=== PATIENT | female | born 1950 | race Asian ===

== ENCOUNTER 2016-08-03 09:29 | Outpatient (CLI) | payer OTHER ==
[~2016-08-03] VITALS: Ht 167.6 cm; Wt 93.0 kg
[~2016-08-03 09:29] MED LIST: AMLO5TAB PO; BUDE1AER5 INH; CARV25TA PO; CLARITIN10 MG PO; DIAZ5TAB20 PO; FLUTICASONE50 MCG INH; LEXAPRO10 MG PO; MECLIZINE25 MG PO; MOBIC15 MG PO; MONTELUKAST SOD10 MG PO; OMEPRAZOLE20 M2 PO; POTA20TA4 PO; RANI150T78 PO; SIMV20TA2 PO
== END 2016-08-03 19:47 | disposition home or self-care (01) ==
LOC: NM 09:29 → MAMMO 13:00 → NM 19:47
DX: R92.8 Other abnormal and inconclusive findings on diagnostic imaging of breast (principal); R94.31 Abnormal electrocardiogram [ECG] [EKG]; R06.09 Other forms of dyspnea
CPT/HCPCS: 77056; A9500; G0206; J2785

== ENCOUNTER 2017-03-04 12:38 | Outpatient (CLI) | payer OTHER ==
[2017-03-04 16:20] LABS: PLATELET COUNT 271 K/uL (152-353)
[2017-03-04 16:42] LABS: POTASSIUM 4.1 mmol/L (3.6-5.2); SODIUM 138 mmol/L (136-145)
== END 2017-03-04 13:40 | disposition home or self-care (01) ==
LOC: LAB 12:38 → RAD 12:38 → LAB 13:40
PROVIDERS: Nurse Practitioner Family
DX: M62.830 Muscle spasm of back (principal); I10 Essential (primary) hypertension; E78.4 Other hyperlipidemia; R53.83 Other fatigue; R53.81 Other malaise; Z79.899 Other long term (current) drug therapy; Z51.81 Encounter for therapeutic drug level monitoring; E55.9 Vitamin D deficiency, unspecified
CPT/HCPCS: 80053; 80061; 82306; 82607; 83036; 84436; 84443; 85027

== ENCOUNTER 2017-11-08 13:40 | Outpatient (CLI) | payer OTHER ==
[2017-11-08 14:34] LABS: PLATELET COUNT 304 K/uL (152-353)
[2017-11-08 14:53] LABS: POTASSIUM 3.5 mmol/L (3.6-5.2)
== END 2017-11-08 21:58 | disposition home or self-care (01) ==
LOC: LAB 13:40
PROVIDERS: Nurse Practitioner Family
DX: E53.8 Deficiency of other specified B group vitamins (principal); E55.9 Vitamin D deficiency, unspecified; F41.8 Other specified anxiety disorders; Z79.899 Other long term (current) drug therapy; Z51.81 Encounter for therapeutic drug level monitoring; E78.4 Other hyperlipidemia; I10 Essential (primary) hypertension; R53.83 Other fatigue
CPT/HCPCS: 80053; 80061; 82306; 82607; 83036; 84436; 84443; 85027

== ENCOUNTER 2018-12-01 08:15 | Outpatient (CLI) | payer OTHER ==
[2018-12-01 08:45] LABS: PLATELET COUNT 253 K/uL (152-353)
[2018-12-01 10:01] LABS: POTASSIUM 3.6 mmol/L (3.6-5.2)
== END 2018-12-01 19:57 | disposition home or self-care (01) ==
LOC: LABW 08:15
PROVIDERS: Nurse Practitioner Family
DX: I10 Essential (primary) hypertension (principal); E78.5 Hyperlipidemia, unspecified; R53.83 Other fatigue; Z79.899 Other long term (current) drug therapy
CPT/HCPCS: 36415; 80053; 80061; 83036; 84439; 84443; 85027

== ENCOUNTER 2019-07-31 07:50 | Outpatient (CLI) | payer OTHER ==
[2019-07-31 08:25] LABS: PLATELET COUNT 238 K/uL (152-353)
== END 2019-07-31 20:07 | disposition home or self-care (01) ==
LOC: LABW 07:50
PROVIDERS: Nurse Practitioner Family
DX: Z00.00 Encounter for general adult medical examination without abnormal findings (principal); E11.9 Type 2 diabetes mellitus without complications; I10 Essential (primary) hypertension; E78.49 Other hyperlipidemia; K21.9 Gastro-esophageal reflux disease without esophagitis; F41.8 Other specified anxiety disorders; R53.82 Chronic fatigue, unspecified
CPT/HCPCS: 36415; 83036; 85027

== ENCOUNTER 2019-10-17 14:37 | Inpatient (IN) | payer OTHER ==
[~2019-10-17] VITALS: Ht 167.6 cm; Wt 137.6 kg
[~2019-10-17 14:37] MED LIST changes: +FLUTICASON50 MCG/AC1 NAS; -FLUTICASONE50 MCG INH
[2019-10-17 16:14] LABS: PLATELET COUNT 255 K/uL (152-353)
[2019-10-17 16:18] VITALS: BP 157/111; TEMP 98.8
[2019-10-17 16:28] LABS: POTASSIUM 3.5 mmol/L (3.6-5.2)
[2019-10-17 21:21] VITALS: TEMP 99.4
[2019-10-18 00:48] VITALS: BP 191/84; TEMP 99.3; Ht 167.6 cm; Wt 137.6 kg
[2019-10-18] MEDS ORDERED: PROVENTIL PO (01:11)
[2019-10-18] MEDS ORDERED: CYCLOBENZAPRINE5 MG PO (01:16)
[2019-10-18] MEDS ORDERED: OMEPRAZOLE DR20 MG PO (01:21)
[2019-10-18] MEDS ORDERED: SITA50TA2 PO (01:25)
[2019-10-18 08:38] VITALS: BP 128/68; TEMP 98.7
[2019-10-18 14:16] VITALS: BP 139/70; TEMP 97.5
[2019-10-18 19:58] VITALS: BP 129/87; TEMP 98.6
[2019-10-19 00:02] VITALS: BP 143/83; TEMP 98.4
[2019-10-19 03:55] VITALS: BP 129/69; TEMP 98.6
[2019-10-19 05:10] LABS: PLATELET COUNT 228 K/uL (152-353)
[2019-10-19 05:17] LABS: POTASSIUM 3.6 mmol/L (3.6-5.2)
[2019-10-19 08:00] VITALS: BP 138/70; TEMP 98.4
[2019-10-19 12:00] VITALS: BP 131/69; TEMP 99.3
[2019-10-19 16:00] VITALS: BP 148/76; TEMP 98.6
[2019-10-19 20:00] VITALS: BP 136/79; TEMP 99.3
[2019-10-20] VITALS: BP 129/75; TEMP 98.6
[2019-10-20 04:00] VITALS: BP 131/76; TEMP 98.8
[2019-10-20 05:29] LABS: PLATELET COUNT 237 K/uL (152-353)
[2019-10-20 05:42] LABS: POTASSIUM 3.5 mmol/L (3.6-5.2)
[2019-10-20 16:59] VITALS: BP 146/84; BP 157/72; TEMP 98.7; TEMP 98.9
[2019-10-20 17:00] VITALS: BP 119/61; TEMP 98.5
[2019-10-20 20:00] VITALS: BP 117/79; TEMP 99.3
[2019-10-21] VITALS: BP 155/82; TEMP 99.2
[2019-10-21 04:00] VITALS: BP 137/77; TEMP 99
[2019-10-21 05:46] LABS: PLATELET COUNT 236 K/uL (152-353)
[2019-10-21 08:44] VITALS: BP 136/76; TEMP 98.8
[2019-10-21 20:00] VITALS: BP 132/77; TEMP 99
[2019-10-22] VITALS: BP 132/83; TEMP 98.9
[2019-10-22 04:00] VITALS: BP 136/80; TEMP 98.7
[2019-10-22 06:07] LABS: PLATELET COUNT 238 K/uL (152-353)
[2019-10-22 06:17] LABS: POTASSIUM 3.8 mmol/L (3.6-5.2)
[2019-10-22 12:00] VITALS: BP 129/76; TEMP 98.7
[2019-10-22 16:00] VITALS: BP 131/77; TEMP 98.8
[2019-10-22 20:00] VITALS: BP 143/68; TEMP 98
[2019-10-23 02:00] VITALS: BP 133/81; TEMP 98.1
[2019-10-23 04:00] VITALS: BP 137/68; TEMP 98.8
[2019-10-23 06:37] LABS: PLATELET COUNT 259 K/uL (152-353)
[2019-10-23 08:00] VITALS: BP 142/77; TEMP 98.6
[2019-10-23] MEDS ORDERED: CEFD300C2 PO (12:09)
[2019-10-23] MEDS ORDERED: BENZONATATE100 MG PO (12:09)
[2019-10-23] MEDS ORDERED: LEVAQUIN250 MG PO (12:10)
[2019-10-23] MEDS ORDERED: GUAI600T70 PO (12:10)
== END 2019-10-23 15:40 | disposition home or self-care (01) | DRG 195 ==
LOC: ED 14:37 → MED/SURG 20:24
PROVIDERS: Internal Medicine Endocrinology, Diabetes & Metabolism; ADMIT Emergency Medicine
DX: J18.8 Other pneumonia, unspecified organism (principal); I10 Essential (primary) hypertension; E11.9 Type 2 diabetes mellitus without complications; E78.49 Other hyperlipidemia; E87.6 Hypokalemia; M15.8 Other polyosteoarthritis
CPT/HCPCS: 36415; 80048; 80053; 82550; 82553; 83605; 84484; 85027; 85379; 87040; 87070; 87205; 87502; 87635; 87651; 87899; 93005; 96365; 99284; J0696; J1650; J1815; J1940; J1956; Q9963

== ENCOUNTER 2019-12-04 16:59 | Emergency (ER) | payer OTHER ==
[~2019-12-04] VITALS: Ht 167.6 cm; Wt 136.1 kg
[~2019-12-04 16:59] MED LIST changes: +BENZONATATE100 MG PO; +CEFD300C2 PO; +CYCLOBENZAPRINE5 MG PO; +GUAI600T70 PO; +LEVAQUIN250 MG PO; +OMEPRAZOLE DR20 MG PO; +PROVENTIL PO; +SITA50TA2 PO
[2019-12-04 17:44] LABS: PLATELET COUNT 281 K/uL (152-353)
[2019-12-04 20:19] VITALS: BP 158/96; TEMP 98.8
== END 2019-12-04 20:21 | disposition home or self-care (01) ==
LOC: ED 16:59
PROVIDERS: Family Medicine
DX: E87.6 Hypokalemia (principal); R50.9 Fever, unspecified; R52 Pain, unspecified; J30.89 Other allergic rhinitis; Z03.818 Encounter for observation for suspected exposure to other biological agents ruled out
CPT/HCPCS: 80053; 85027; 87502; 87635; 87651; 99282; 99283; U0002

== ENCOUNTER 2019-12-31 10:27 | Emergency (ER) | payer OTHER ==
[~2019-12-31] VITALS: Ht 167.6 cm; Wt 136.1 kg
[2019-12-31 10:28] VITALS: BP 152/81; TEMP 98.8
[2019-12-31 11:56] LABS: PLATELET COUNT 246 K/uL (152-353)
[2019-12-31 12:05] LABS: POTASSIUM 3.7 mmol/L (3.6-5.2)
== END 2019-12-31 12:40 | disposition home or self-care (01) ==
LOC: ED 10:27
PROVIDERS: Family Medicine
DX: J20.9 Acute bronchitis, unspecified (principal); H65.191 Other acute nonsuppurative otitis media, right ear
CPT/HCPCS: 80053; 85027; 99283

== ENCOUNTER 2020-02-13 10:29 | Outpatient (CLI) | payer OTHER ==
[2020-02-13 12:48] LABS: PLATELET COUNT 239 K/uL (152-353)
[2020-02-13 17:12] LABS: POTASSIUM 3.4 mmol/L (3.6-5.2)
== END 2020-02-13 20:24 | disposition home or self-care (01) ==
LOC: RAD 10:29
PROVIDERS: Nurse Practitioner Family
DX: R05 Cough (principal); R06.02 Shortness of breath
CPT/HCPCS: 36415; 80053; 83880; 85027

== ENCOUNTER 2020-04-01 09:57 | Outpatient (CLI) | payer OTHER ==
[2020-04-01 10:44] LABS: PLATELET COUNT 256 K/uL (152-353)
[2020-04-01 10:53] LABS: POTASSIUM 3.1 mmol/L (3.6-5.2)
== END 2020-04-01 23:51 | disposition home or self-care (01) ==
LOC: CT 09:57
PROVIDERS: Nurse Practitioner Family
DX: R05 Cough (principal); R06.02 Shortness of breath; R53.83 Other fatigue; R60.0 Localized edema; D64.89 Other specified anemias; I10 Essential (primary) hypertension; E78.49 Other hyperlipidemia; E11.9 Type 2 diabetes mellitus without complications; H92.09 Otalgia, unspecified ear; R51 Headache
CPT/HCPCS: 36415; 80053; 80061; 81000; 82043; 82570; 83036; 83880; 84439; 84443; 85027

== ENCOUNTER 2020-07-17 08:05 | Outpatient (CLI) | payer OTHER | END 2020-07-17 19:19 | disposition home or self-care (01) | LOC: RAD 08:05 | PROVIDERS: ATTEND Nurse Practitioner Family | DX: R05 Cough (principal); R06.02 Shortness of breath ==

== ENCOUNTER 2020-11-14 09:41 | Outpatient (CLI) | payer OTHER | END 2020-11-14 21:19 | disposition home or self-care (01) | LOC: MAMMO 09:41 | PROVIDERS: ATTEND Nurse Practitioner Family | DX: Z12.31 Encounter for screening mammogram for malignant neoplasm of breast (principal) ==

== ENCOUNTER 2020-12-03 18:09 | Emergency (ER) | payer OTHER ==
[~2020-12-03] VITALS: Ht 167.6 cm; Wt 136.2 kg
[2020-12-03 19:06] LABS: PLATELET COUNT 224 K/uL (152-353)
[2020-12-03 19:18] LABS: POTASSIUM 3.4 mmol/L (3.6-5.2); SODIUM 142 mmol/L (136-145)
[2020-12-03 19:42] VITALS: BP 143/65; TEMP 98.6
== END 2020-12-03 19:42 | disposition home or self-care (01) ==
LOC: ED 18:09
PROVIDERS: Family Medicine
DX: M79.18 Myalgia, other site (principal)
CPT/HCPCS: 36415; 80053; 82550; 83605; 83880; 84484; 85027; 93005; 96374; 99284; J1885

== ENCOUNTER 2020-12-15 08:32 | Outpatient (CLI) | payer OTHER | END 2020-12-15 19:52 | disposition home or self-care (01) | LOC: RAD 08:32 | PROVIDERS: ATTEND Nurse Practitioner Family | DX: Z09 Encounter for follow-up examination after completed treatment for conditions other than malignant neoplasm (principal); R59.9 Enlarged lymph nodes, unspecified; J02.9 Acute pharyngitis, unspecified; R05 Cough; I10 Essential (primary) hypertension; G47.00 Insomnia, unspecified; E78.49 Other hyperlipidemia; K21.9 Gastro-esophageal reflux disease without esophagitis; D64.89 Other specified anemias; E11.9 Type 2 diabetes mellitus without complications; E66.9 Obesity, unspecified; Z13.820 Encounter for screening for osteoporosis; N95.8 Other specified menopausal and perimenopausal disorders ==

== ENCOUNTER 2020-12-31 12:36 | Outpatient (CLI) | payer OTHER | END 2020-12-31 21:02 | disposition home or self-care (01) | LOC: RAD 12:36 | PROVIDERS: ATTEND Nurse Practitioner | DX: R06.2 Wheezing (principal) ==

== ENCOUNTER 2021-01-27 11:29 | Outpatient (CLI) | payer OTHER | END 2021-01-27 17:00 | disposition home or self-care (01) | LOC: LAB 11:29 | PROVIDERS: ATTEND Nurse Practitioner Family | DX: R30.0 Dysuria (principal) | CPT/HCPCS: 81000 ==

== ENCOUNTER 2021-06-05 08:48 | Outpatient (CLI) | payer OTHER | END 2021-06-05 19:32 | disposition home or self-care (01) | LOC: US 08:48 | PROVIDERS: ATTEND Nurse Practitioner Family | DX: I10 Essential (primary) hypertension (principal); G47.00 Insomnia, unspecified; E78.49 Other hyperlipidemia; K21.9 Gastro-esophageal reflux disease without esophagitis; D64.89 Other specified anemias; E11.65 Type 2 diabetes mellitus with hyperglycemia; R59.9 Enlarged lymph nodes, unspecified; E66.01 Morbid (severe) obesity due to excess calories; Z68.43 Body mass index [BMI] 50.0-59.9, adult; F41.8 Other specified anxiety disorders ==

== ENCOUNTER 2021-06-17 08:34 | Outpatient (CLI) | payer OTHER | END 2021-06-17 20:31 | disposition home or self-care (01) | LOC: CT 08:34 | PROVIDERS: ATTEND Nurse Practitioner Family | DX: I10 Essential (primary) hypertension (principal); E78.5 Hyperlipidemia, unspecified; K21.9 Gastro-esophageal reflux disease without esophagitis; D64.9 Anemia, unspecified; R59.1 Generalized enlarged lymph nodes; E11.9 Type 2 diabetes mellitus without complications; R13.10 Dysphagia, unspecified | CPT/HCPCS: 36415; 82565; 84520; Q9963 ==

== ENCOUNTER 2021-08-24 09:43 | Outpatient (CLI) | payer OTHER | END 2021-08-24 20:54 | disposition home or self-care (01) | LOC: US 09:43 | PROVIDERS: ATTEND Marriage & Family Therapist | DX: M79.605 Pain in left leg (principal); M79.604 Pain in right leg ==

== ENCOUNTER 2021-12-09 08:19 | Outpatient (CLI) | payer OTHER | END 2021-12-09 18:51 | disposition home or self-care (01) | LOC: CT 08:19 | PROVIDERS: ATTEND Nurse Practitioner Family | DX: R10.84 Generalized abdominal pain (principal) | CPT/HCPCS: 36415; 82565; 84520; Q9963 ==

== ENCOUNTER 2022-01-11 08:37 | Outpatient (CLI) | payer OTHER ==
[2022-01-11 09:37] LABS: POTASSIUM 3.8 mmol/L (3.6-5.2)
[2022-01-11 09:53] LABS: PLATELET COUNT 243 K/uL (152-353)
== END 2022-01-11 18:58 | disposition home or self-care (01) ==
LOC: LABW 08:37
PROVIDERS: ATTEND Nurse Practitioner Family
DX: E78.2 Mixed hyperlipidemia (principal); E11.65 Type 2 diabetes mellitus with hyperglycemia; Z86.79 Personal history of other diseases of the circulatory system; I10 Essential (primary) hypertension; R82.998 Other abnormal findings in urine
CPT/HCPCS: 36415; 80053; 80061; 81000; 82043; 82570; 83036; 84439; 84443; 85027; 87088

== ENCOUNTER 2022-01-25 10:07 | Emergency (ER) | payer OTHER ==
[~2022-01-25] VITALS: Ht 167.6 cm; Wt 145.2 kg
[2022-01-25 11:32] LABS: PLATELET COUNT 201 K/uL (152-353)
[2022-01-25 11:40] LABS: POTASSIUM 4.2 mmol/L (3.6-5.2)
[2022-01-25 13:50] VITALS: BP 164/77; TEMP 98.1
== END 2022-01-25 13:51 | disposition home or self-care (01) ==
LOC: ED 10:07
PROVIDERS: Emergency Medicine Emergency Medical Services
DX: S12.491A Other nondisplaced fracture of fifth cervical vertebra, initial encounter for closed fracture (principal); M48.8X2 Other specified spondylopathies, cervical region; M25.552 Pain in left hip; W01.0XXA Fall on same level from slipping, tripping and stumbling without subsequent striking against object, initial encounter; Y92.091 Bathroom in other non-institutional residence as the place of occurrence of the external cause
CPT/HCPCS: 80048; 81002; 85027; 93005; 96360; 96361; 96374; 96375; 99285; J2270; J2405

== ENCOUNTER 2022-07-16 09:33 | Outpatient (CLI) | payer OTHER ==
[2022-07-16 09:49] LABS: PLATELET COUNT 155 K/uL (152-353)
[2022-07-16 11:55] LABS: POTASSIUM 3.5 mmol/L (3.6-5.2)
== END 2022-07-16 18:57 | disposition home or self-care (01) ==
LOC: LAB 09:33
PROVIDERS: ATTEND Nurse Practitioner Family
DX: R60.0 Localized edema (principal); M79.604 Pain in right leg; E11.8 Type 2 diabetes mellitus with unspecified complications; R06.09 Other forms of dyspnea; E55.9 Vitamin D deficiency, unspecified
CPT/HCPCS: 80053; 80061; 82043; 82306; 82570; 83036; 83880; 84439; 84443; 85027

== ENCOUNTER 2022-08-08 15:22 | Emergency (ER) | payer OTHER ==
[~2022-08-08] VITALS: Ht 167.6 cm; Wt 145.2 kg
[2022-08-08 15:22] VITALS: BP 145/85; TEMP 98
[2022-08-08 16:39] LABS: PLATELET COUNT 199 K/uL (152-353)
[2022-08-08 16:43] LABS: POTASSIUM 3.8 mmol/L (3.6-5.2)
== END 2022-08-08 18:52 | disposition home or self-care (01) ==
LOC: ED 15:22
PROVIDERS: Family Medicine
DX: R42 Dizziness and giddiness (principal); E86.0 Dehydration; D64.89 Other specified anemias; R05.8 Other specified cough; J32.8 Other chronic sinusitis; R06.02 Shortness of breath; Z79.899 Other long term (current) drug therapy
CPT/HCPCS: 36415; 80053; 80307; 81002; 83880; 84484; 85027; 93005; 99283

== ENCOUNTER 2023-02-15 10:56 | Outpatient (CLI) | payer OTHER | END 2023-02-15 19:15 | disposition home or self-care (01) | LOC: RAD 10:56 | PROVIDERS: ATTEND Nurse Practitioner Family | DX: R22.32 Localized swelling, mass and lump, left upper limb (principal) ==